=== PATIENT | female | born 1935 | race Caucasian/White ===

== ENCOUNTER 2018-06-08 16:53 | Inpatient (IN) | payer MEDICARE, OTHER ==
[~2018-06-08] VITALS: Ht 170.2 cm; Wt 44.1 kg
[2018-06-08 16:53] VITALS: BP 139/75
[2018-06-08] MEDS ORDERED: LOPRESSOR25 PO (16:57)
[2018-06-08] MEDS ORDERED: DIOVAN 80 MG TA80 M1 PO (16:57)
[2018-06-08] MEDS ORDERED: VITAMIN D5000 UNIT PO (16:58)
[2018-06-08] MEDS ORDERED: UNICOMPLEX M TA1 TA1 PO (16:58)
[2018-06-08] MEDS ORDERED: TUMS PO (16:58)
[2018-06-08 17:34] LABS: HEMATOCRIT 38.7 % (37.0-47.0); MCH 30.8 pg (26.0-34.0); MCHC 33.7 g/dL (28.0-37.0); MCV 91.5 fL (80.0-100.0); MPV 9.4 fl. (7.2-11.1); NUCLEATED RBCS 0 /100WBC; PLATELET COUNT* 96 thou/uL (150-400); RBC 4.23 mil/uL (4.20-5.00); RDW-CV 12.5 % (10.5-14.5); WBC 9.1 thou/uL (4.0-11.0)
[2018-06-08 17:42] LABS: CALCIUM 8.3 mg/dL (8.5-10.1); CREATININE 0.8 mg/dL (0.6-1.3); POTASSIUM 3.8 mmol/L (3.5-5.1)
[2018-06-08 17:47] LABS: ALBUMIN 3.1 g/dL (3.4-5.0); TOTAL BILIRUBIN 0.6 mg/dL (<0.1-1.0); TOTAL PROTEIN 6.8 g/dL (6.4-8.2)
[2018-06-08 18:02] LABS: ABSOLUTE LYMPHOCYTES 0.6 thou/uL (0.8-5.3); ABSOLUTE MONOCYTES 0.3 thou/uL (0.0-1.2); ABSOLUTE NEUTROPHILS 8.2 thou/uL (1.6-8.1); PLATELET ESTIMATE DECREASED
[2018-06-08 19:12] LABS: APTT 27.5 Seconds (25.0-31.3); PROTIME 10.7 Seconds (9.20-11.50)
[2018-06-08 20:01] LABS: TROPONIN-I LEVEL 0.97 ng/mL (<0.06)
--- NOTE | 2018-06-08 21:23 | NUR ---
REPORT RECEIVED FROM
[2018-06-08 21:26] VITALS: BP 144/75
[2018-06-08 21:34] VITALS: BP 126/70
[2018-06-08] MEDS ORDERED: ASPIR 8181 M1 PO (23:25)
[2018-06-08] MEDS ORDERED: CALCIUM 600 +1 EAC1 PO (23:29)
[2018-06-08] MEDS ORDERED: VITAMIN D1000 UNI1 PO (23:33)
[2018-06-08] MEDS ORDERED: TOPROL XL25 MG PO ×2 (23:34→23:36)
[2018-06-09 04:00] VITALS: BP 103/59
--- NOTE | 2018-06-09 06:57 | NUR ---
PATIENT RESTED IN BED, NO ACUTE CHANGES. PATIENT DID NOT SHOW SIGNS OF DISTRESS. FALL PRECAUTIONS IN PLACE, BED ALARM ON, CALL LIGHT WITH IN REACH, HOURLY ROUNDING OBSERVED. PATIENT DID NOT COMPLAIN OF CHEST PAIN.
--- NOTE | 2018-06-09 07:30 | NUR ---
PATIENT HAS BEEN NPO OVER NIGHT FOR CARDIOLOGY.
[2018-06-09 08:15] VITALS: BP 126/67
--- NOTE | 2018-06-09 12:21 | NUR ---
ASSUMED CARE OF PT AROUND 0730 THIS AM. REFER TO ASSESSMENT. PT DISCUSSED PLAN OF CARE/ NECESSITY OF CARDIAC CATH WITH CARDIOLOGISTS AND NURSE PRACTITIONER THIS AM. FAMILY AT BEDSIDE DURING DISCUSSION. PT CONSENTS TO HAVING CARDIAC CATH. ANTICIPATE CATH THIS EVENING OR TOMORROW MORNING. PT DISCUSSED DISCHARGE PLAN WITH CASE MANAGEMENT. PT REQUESTING SENIOR CARE UPON DISCHARGE. WILL DISCUSS WITH PHYSICIAN FOR THERAPY ORDERS. NO OTHER CONCERNS AT THIS TIME. CLWR. WCTM.
--- NOTE | 2018-06-09 12:25 | NUR ---
Pt is A&O. Resides at home alone. Pt moved to this area approx 3 months ago from [place], to be closer to family. Pt has a cane, walker and wc at home that she uses, Pt uses the wc when out in the community and for longer distances. Family now drives Pt to run errands and to appts. Pt has a cleaning lady that comes every 2 weeks. Pt states that she really hasn't been eating lately stating "I just haven't felt up to it." Supportive dtr. Pt scheduled to have a cath today. Pt has had increased falls at home and in agreement with going to skilled [place]. Faxed initial referral to [facility] per Pt's request. Following.
[2018-06-09 13:01] VITALS: BP 143/77
--- NOTE | 2018-06-09 13:56 | EKG ---
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
[2018-06-09 15:35] LABS: CHOLESTEROL 154 mg/dL (<200); HDL CHOLESTEROL 57 mg/dL (>40); LDL CHOLESTEROL 81 mg/dL (<100); TC:HDL 2.7 Ratio (Not establshd); TRIGLYCERIDE 81 mg/dL (<150); VLDL 16 mg/dL (<40)
[2018-06-09 15:37] LABS: SERUM ASSESSMENT Clear
[2018-06-09 16:30] VITALS: BP 118/64
--- NOTE | 2018-06-09 16:58 | NUR ---
PT SOMEWHAT PROGRESSING TOWARDS GOALS TODAY. ANTICIPATE PT TO DRIER TENDER TOMORROW AM. CONTINUE O2 AT 2L/NC. PT TO START WITH PT/OT FOR WEAKNESS. ANTICIPATE DC TO SKILLED D/T FALLS AT HOME. NO OTHER CONCERNS AT THIS TIME. CLWR. WCTM.
[2018-06-09 19:55] LABS: URINE BILIRUBIN NEGATIVE (Negative); URINE BLOOD 3+ (Negative); URINE CLARITY CLEAR; URINE COLOR YELLOW; URINE GLUCOSE-RANDOM NEGATIVE (Negative); URINE KETONES TRACE (Negative); URINE PROTEIN 2+ (Negative); URINE UROBILINOGEN 0.2 E.U./dl (0.2-1.0)
[2018-06-09 19:56] LABS: URINE LEUKOCYTES-REFLEX 2+ (Negative); URINE NITRITE-REFLEX POSITIVE (Negative)
[2018-06-09 20:09] VITALS: BP 100/59
[2018-06-09 20:09] LABS: SQUAMOUS 4-10 Moderate /LPF (0-3); URINE WBC-REFLEX >25 Many /HPF (0-5)
[2018-06-09 20:10] LABS: BACTERIA-REFLEX >30 Many /HPF (None Seen); CASTS None Seen /LPF (None Seen); CRYSTALS None Seen /LPF (None Seen)
[2018-06-10] VITALS (14 sets, daily range): BP systolic 110–167; BP diastolic 49–99
[2018-06-10 04:06] LABS: GLYCOHEMOGLOBIN (HGB A1C) 5.1 % (4.8-5.6)
--- NOTE | 2018-06-10 05:07 | NUR ---
PT IS ABLE TO COMMUNICATE HER NEEDS TO STAFF EFFECTIVELY. CURRENT PAIN MEDICATION REGIMEN HAS BEEN ADEQUATE FOR CONTROLLING HER PAIN UP TO THIS TIME. SHE HAS BEEN NPO SINCE MIDNIGHT FOR A POSSIBLE CARDIC CATH LATER TODAY. PT HAS BEEN CONFUSED AT TIMES OVERNIGHT.
--- NOTE | 2018-06-10 18:21 | NUR ---
PT HAD HEART CATH THIS AFTERNOON. PT TOLERATED WELL. CATH SITE REMAINS FREE OF HEMATOMA OR BLEEDING. PT REPORTS OCCASIONAL RIGHT SHOULDER PAIN. FAMILY AT BS AND UPDATED ON PLAN OF CARE
[2018-06-11] VITALS (7 sets, daily range): BP systolic 102–140; BP diastolic 46–99
--- NOTE | 2018-06-11 05:03 | NUR ---
ASSUMED PATIENT CARE/ REPORT RECEIVED FORM NURSE. PT FOUND IN IDALIA SOB ON RA. PULSE OXYMETRY SHOWS SATURATION BETWEEN 77 AND 80 ON RA. OXYGEN 2 L NC WAS ADMINISTERED VIA NC, THEN UP TO 4 L NC. OXYGEN WAS UP TO ABOVE 95% ON 4 L NC AFTER ABOUT 5 MINUTES. CONTINUOUS PULSE OX MONITORING WAS PLACED AT BEDSIDE AFTER ORDER OBTAINED FROM MARKETING OPERATIONS CONSULTANT. OXYGEN STAYS STABLE ABOVE 95% ON 2 L N. SINUS RYTHM ON THE MONITOR. IV LINE IS PATENT. RIGHT GROIN DRESSING IS INTACT. PT IS AT RISK FOR FALL. FALL PRECAUTION IN PLACE . CALL LIGHT AT REACH. PT EDUCATED ABOUT NEED FOR OXYGEN AND RISK FOR FALL. SHE REEIVED SLEEPING PILL WHICH HELP HER SLEEP WELL DURING THE NIGHT. SHE MIGHT BE D.C TODAY AND IS CONCERNED ABOUT HER D/C DESTINATION. ENSURE PT THAT CASE MANAGEMENT WILL WORK ALONG WITH HER AND SUPPORT SYSTEM TO MAKE THE BEST CHOICE. WILL CONTINUE TO MONITOR.
[2018-06-11 05:28] LABS: CALCIUM 7.8 mg/dL (8.5-10.1); CREATININE 0.6 mg/dL (0.6-1.3); POTASSIUM 3.6 mmol/L (3.5-5.1)
--- NOTE | 2018-06-11 10:44 | CARD ---
[address] [address] CARDIAC CATH REPORT Name: VAIBHAV SALINAS Room: [address] IN M.R.#: [id number] Admission: 06/08/18 Attend Phys: Derrick Lo MD Discharge: Date of : 35 Report #: [id number] THIS REPORT FOR: //name// APPROVED REPORT Study performed: 06/10/2018 10:53:41 Patient Details Patient Status: Out-Patient Room #: 206 The patient is a 82 year-old female Event Personnel Edson Wei Band Cutting Machine Operator, Maya eLon RN Vp Global Marketing [employer], Ching Estrada RTR Monitor, Francisco Owen Scrub Procedures Performed Art Access - R femoral artery* Left Heart Cath w/or w/o Coronaries [facility] Indication Chest pain Risk Factors Family History, Hypertension Procedure Narrative The patient was brought electively to the Cardiac Catheterization Laboratory and was prepped and draped in a sterile manner. The right femoral was infiltrated with 2% Lidocaine subcutaneous anesthesia. A 6Fr pinnacle sheath was inserted into the . Coronary angiography was performed using coronary diagnostic catheters. The right coronary system was accessed and visualized with a Diagnostic 6Fr JR4 catheter. The left coronary system was accessed and visualized with a Diagnostic 6Fr JL4 catheter. The left ventricle was accessed and visualized with a Diagnostic 6Fr straight pigtail catheter. Hemostasis was obtained with manual pressure following sheath removal without any complications. The patient tolerated the procedure well and there were no complications associated with the procedure. There was no hematoma. Fluoro Time: 2.9 minutes Dose: DAP 93286 cGycm2 61.8 mGy Contrast Type and Amount: Visipaque 125 [place] [address] CARDIAC CATH REPORT Name: VAIBHAV SALINAS Room: [address] IN [facility]#: [id number] Admission: 06/08/18 Attend Phys: Derrick Lo MD Discharge: Date of : 35 Report #: [id number] The patient's coronary anatomy is right dominant. Diagnostic Cath Left Main 0% narrowing LAD 20% proximal and mid LAD narrowing with local calcification at those sites Circumflex 30% proximal circumflex narrowing Right Coronary Dominant vessel with 30% mid vessel narrowing Left Ventriculography Left Ventriculography was not performed. Hemodynamics The aortic pressure is 159/60 mmHg with a mean of 95 mmHg. The left ventricular pressure is 146/0 mmHg with a mean of mmHg. The left ventricular end diastolic pressure is 5 mmHg. There was no gradient across the aortic valve upon pullback. Conclusion #1 modest coronary artery disease characterized by the following: A 20% proximal and mid LAD narrowing with local calcification at those sites B 30% narrowing of the proximal portion of the nondominant circumflex C dominant right coronary artery 30% mid vessel narrowing #2 mild systemic systolic hypertension with normal left ventricular end-diastolic pressure at rest Recommendations Cardiac Risk Reduction Program Diagnostic Cath Approved by: Edson Wei MD Date/Time: 06/11/2018 10:43:17 <ELECTRONICALLY SIGNED> By: Edson Wei MD, [facility] 06/11/18 1043 1043 1043Edson Wei MD, FAC /INF
--- NOTE | 2018-06-11 11:58 | NUR ---
Anticipate Pt should be ready to dc soon. Spoke with Amisha at [facility], they are able to accept Pt for skilled over the weekend. [phone] f:[phone]
--- NOTE | 2018-06-11 12:37 | NUR ---
I have reviewed the documentation by LESVIA LOZOYA froM 06/11/18 and I concur with it. LEVI MARSHALL
--- NOTE | 2018-06-11 13:46 | NUR ---
ASSUMED PT CARE AT 0700 PT IS ALERT AND ORIENTED X 4 WITH PERIODS OF CONFUSION, PT C/O PAIN IN RIGHT SHOULDER APPLIED SCHEDULED LIDOCAINE PATCH REASSESSED PT STATES PATCH HELPED PAIN, PT IS UP WITH ASSIST X 1 PT IS A FALL RISK BED ALARM IS ON, PT IS ST ON THE MONITOR, PT IS SOA WITH EXCERTION WHEN TRANSFERING TO COMMODE PT O2 DROPPED BELOW 90 TURNED PT UP TO 3L/NC PT TOLERATED WELL SATS ABOVE 90, PT WENT FOR MRI WHICH THEY WERE UNABLE TO GET SINCE PT CAN'T LAY FLAT, WILL CONTINUE TO MONITOR
--- NOTE | 2018-06-11 14:58 | 2DMMODE ---
[place] [address] 2 D/M-MODE ECHOCARDIOGRAM Name: VAIBHAV SALINAS Room: [address] IN [facility]#: [id number] Admission: 06/08/18 Attend Phys: Derrick Lo, Discharge: Date of : 35 Date of Service: 06/11/18 1457 Report #: [id number] THIS REPORT FOR: //name// APPROVED REPORT Study performed: 06/11/2018 10:39:26 EXAM: Comprehensive 2D, Doppler, and color-flow Echocardiogram Patient Location: In-Patient Room #: [facility] Status: routine BSA: 1.54 HR: 93 bpm BP: 107/53 mmHg Rhythm: NSR Other Information Study Quality: Good Indications Non STEMI Dyspnea Elevated Troponin 2D Dimensions LVEF(%): 80.38 (>50%) IVSd: 11.13 (7-11mm) LVOT Diam: 20.27 (18-24mm) LVDd: 29.33 mm PWd: 9.91 (7-11mm) Ascending Ao: 32.45 (22-36mm) LVDs: 15.41 (25-40mm) Aortic Root: 29.15 mm Lackey's LVEF: 80.38 % Volumes Left Atrial Volume (Systole) LA ESV Index: 21.70 mL/m2 Aortic Valve AoV Peak Deangelo.: 1.30 m/s AO Peak Gr.: 6.80 mmHg LVOT Max P.20 mmHg AO Mean Gr.: 3.95 mmHg LVOT Mean P.58 mmHg LVOT Max V: 0.89 m/s AO V2 VTI: 20.75 cm LVOT Mean V: 0.58 m/s VICKY (VTI): 2.33 cm2 LVOT V1 VTI: 14.97 [place] [address] 2 D/M-MODE ECHOCARDIOGRAM Name: VAIBHAV SALINAS Room: [address] IN .R.#: [id number] Admission: 06/08/18 Attend Phys: Derrick Lo, Discharge: Date of : 35 Date of Service: 06/11/18 1457 Report #: [id number] Mitral Valve E/A Ratio: 0.44 MV Decel. Time: 167.83 ms MV E Max Deangelo.: 0.50 m/s MV PHT: 48.67 ms MVA (PHT): 4.52 cm2 TDI E/Lateral E': 5.56 E/Medial E': 7.14 Medial E' Deangelo.: 0.07 m/s Lateral E' Deangelo.: 0.09 m/s Pulmonary Valve PV Peak Deangelo.: 0.78 m/s PV Peak Gr.: 2.45 mmHg Tricuspid Valve RAP Estimate: 5.00 mmHg TR Peak Gr.: 46.11 mmHg RVSP: 51.11 mmHg PA Pressure: 51.11 mmHg Left Ventricle The left ventricle is normal size. There is normal LV segmental wall motion. There is normal left ventricular wall thickness. Left ventricular systolic function is normal. The left ventricular ejection fraction is within the normal range. LVEF is 65%. Grade I - abnormal relaxation pattern. Right Ventricle Right ventricle is dilated. The right ventricular systolic function is normal. Atria The left atrium size is normal. The right atrium size is normal. Aortic Valve The aortic valve is normal in structure. No aortic regurgitation is present. There is no aortic valvular stenosis. Mitral Valve There is mitral annular calcification. Moderate mitral regurgitation. No evidence of mitral valve stenosis. Tricuspid Valve The tricuspid valve is normal in structure. Moderate tricuspid regurgitation. [place] [address] 2 D/M-MODE ECHOCARDIOGRAM Name: VAIBHAV SALINAS Room: [address] IN ..#: [id number] Admission: 06/08/18 Attend Phys: Derrick Lo, Discharge: Date of : 35 Date of Service: 06/11/18 1457 Report #: [id number] Pulmonic Valve The pulmonary valve is normal in structure. There is no pulmonic valvular regurgitation. Great Vessels The aortic root is normal in size. IVC is normal in size and collapses with >50% inspiration Pericardium There is no pericardial effusion. <Conclusion> LVEF is 65%. There is normal LV segmental wall motion. Grade I - abnormal relaxation pattern. Moderate mitral regurgitation. Moderate tricuspid regurgitation. Moderate pulmonary hypertension. <ELECTRONICALLY SIGNED> By: aWlly Suarez MD, FACC 06/11/18 1457 1457 1457 Wally Suarez MD, FACC /INF
[2018-06-12] VITALS: BP 116/54; BP 126/56
[2018-06-12 04:00] VITALS: BP 106/50
--- NOTE | 2018-06-12 06:59 | NUR ---
ASSUMED PT CARE REPORT RECEIVED FORM NURSE PT IS JOSÉ MIGUEL AWAKE ORIENTED X 4 SINUS RYTHM ON MONITOR, O2 3 L NC. UP IN CHAIR WITH ASSIST X1. SHE SLEPT DURING NIGHT. NO MED ORDERED AND RECEIVED. SHE FET BACK DISCOMFORT BUT REFUSED ANY PAIN MED SAYING THAT SHE CAN HANDLE THE DISCOMFORT. READY FOR DC TODAY
--- NOTE | 2018-06-12 07:25 | NUR ---
CHANGE OF SHIFT BEDSIDE REPORT GIVEN PATIENT SEEN IN BED ASLEEP BED ALARM SET ASSUMED PATIENT CARE
[2018-06-12 08:00] VITALS: BP 113/56
[2018-06-12 09:09] LABS: NT-PRO BRAIN NAT PEPTIDE 2637 pg/mL (<300); TROPONIN-I LEVEL <0.06 ng/mL (<0.06)
[2018-06-12 09:48] VITALS: BP 113/56
[2018-06-12] MEDS ORDERED: CEFUROXIME500 MG PO (09:56)
[2018-06-12] MEDS ORDERED: LIDOPATCH1 EACH TOP (09:56)
[2018-06-12] MEDS ORDERED: LASIX 20 MG TAB20 MG PO (09:56)
--- NOTE | 2018-06-12 10:18 | NUR ---
Following for d/c planning needs. Received order from physician to d/c to SNF. Spoke with sales training coordinator at [facility] and faxed d/c orders. Called pt's daughter and left message. Pt is alert and oriented. Pt said she is ready to go. [facility] will provide w/c van transportation at 1300. Chart copied. No other needs identified. [facility] [phone] [facility] [phone]; fax [phone]
[2018-06-12] MEDS ORDERED: DULCOLAX5 MG PO (12:41)
--- NOTE | 2018-06-12 12:45 | NUR ---
NURSE WORKING ON AND POLICY CHANGE CLERKS SUPERVISOR ASSISTING PATIENT TO GET DRESSED AND REMOVE IV AND HEART MONIOTR, PHONE CALL AT DESK REGARDING PATIENTS DISCHARGE. NURSE UNABLE TO GET TO PHONE BEFORE THE CALL WAS ENEDED BY CALLER. NURSE WENT DOWN TO AND FOUND OUT THE CALLER WAS THE AYANNA IN THE PATIENTS ROOM. THE DAUGHTER EXPRESSED ANGER BECAUSE THE PATIENT WASNT READY YET FOR THE 1300 PICK WITH THE WC VAN AND THEY WERE EARLY, ARRIVING AY 1240. SHE WAS ALSO CONCERNED THE PATIENT WOULD BE EXHAUSTED AFTER GETTING DRESSED AND BE UNABLE TO EAT HER LUNCH, WHICH HAD JUST ARRIVED. SHE SAID SHE HAD ORDERED IT EARLIER AND HAD ASKED IT TO BE DELIVERED EARLY BUT IT HAD JUST ARRIVED A FEW MINUTIES BEFORE. NURSE ACKNOWLEDGED HER CONCERNS AND APOLIGIZED FOR THE WAY THINGS HAPPENED AND ASKED THE CHARGE NURSE TO COME SPEAK WITH THE DAUGHTER.
--- NOTE | 2018-06-12 12:51 | EKG ---
[place] [address] ELECTROCARDIOGRAM REPORT Name: VAIBHAV SALINAS Room: [address] ADM IN M.R.#: [id number] Admission: 06/08/18 Attend Phys: Derrick Lo MD Discharge: Date of : 35 Report #: [id number] THIS REPORT FOR: //name// 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: : 1935 Requested By: Frandy Cortes Order Number: [id number] Reading MD: Duane Cortes Measurements Intervals [place] Rate: 86 P: 22 PA: 136 QRS: 30 QRSD: 126 T: 23 QT: 358 QTc: 429 Interpretive Statements Sinus rhythm Multiple premature complexes, vent & supraven Nonspecific intraventricular conduction delay Anteroseptal infarct, old Compared to ECG 06/08/2018 20:22:41 Intraventricular conduction delay now present Myocardial infarct finding now present Atrial premature complex(es) no longer present Electronically Signed On 06-12-2018 12:51:16 CDT by Duane Cortes [email or web address] <ELECTRONICALLY SIGNED> By: Frandy Cortes MD, [facility] 06/12/18 1251 1 Frandy Cortes MD, [facility] /EPI
--- NOTE | 2018-06-12 13:15 | NUR ---
DISCHARGE TO [facility] ALL DC INFORMATION GIVEN AND ACKNOWLEDGED AND SIGNED COPIES GIVEN IV AND HEART MONITOR REMOVED PATIENT ASSISTED OUT VIA WC GOOD CONDITION TO WC VAN WITH TRANSPORTER
--- NOTE | 2018-06-14 09:42 | NUR ---
Faxed final cultures to Amisha at [facility]
== END 2018-06-12 13:31 | DRG 280 ==
LOC: M.ERS 16:53 → M.2W 20:44 → M.TBA-ER 20:44 → M.2W 21:34
PROVIDERS: Emergency Medicine; Internal Medicine; Personal Emergency Response Attendant; ADMIT Internal Medicine
PROC: 4A023N7 Measurement of Cardiac Sampling and Pressure, Left Heart, Percutaneous Approach (ICD-10-PCS; principal; 2018-06-11)
PROC: B2111ZZ Fluoroscopy of Multiple Coronary Arteries using Low Osmolar Contrast (ICD-10-PCS; principal; 2018-06-11)
DX: I21.4 Non-ST elevation (NSTEMI) myocardial infarction (principal); G92 Toxic encephalopathy; J96.01 Acute respiratory failure with hypoxia; I50.43 Acute on chronic combined systolic (congestive) and diastolic (congestive) heart failure; N39.0 Urinary tract infection, site not specified; E44.0 Moderate protein-calorie malnutrition; Z68.1 Body mass index [BMI] 19.9 or less, adult; I25.10 Atherosclerotic heart disease of native coronary artery without angina pectoris; E78.5 Hyperlipidemia, unspecified; M41.9 Scoliosis, unspecified; W18.39XA Other fall on same level, initial encounter; I08.1 Rheumatic disorders of both mitral and tricuspid valves; I11.0 Hypertensive heart disease with heart failure; R91.1 Solitary pulmonary nodule; I27.20 Pulmonary hypertension, unspecified; Z87.311 Personal history of (healed) other pathological fracture; Y93.89 Activity, other specified; Y92.89 Other specified places as the place of occurrence of the external cause; Y99.8 Other external cause status; Z90.710 Acquired absence of both cervix and uterus; Z79.899 Other long term (current) drug therapy; Z82.49 Family history of ischemic heart disease and other diseases of the circulatory system